=== PATIENT | male | born 1975 | race African-American/Black ===

== ENCOUNTER 2016-08-01 19:29 | Emergency (ER) | payer BC, MEDICAID ==
[2016-08-01 19:39] VITALS: RESP 18
[2016-08-01] MEDS ORDERED: SODIUM CHLORIDE 0.9% 1,000 ML IV ONE (20:11)
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
[2016-08-01] MEDS ORDERED: LORazepam 2 MG/ML SYRINGE IM STA (21:48)
[2016-08-01] MEDS ORDERED: ZIPRASIDONE 20 MG VIAL IM STA (21:48)
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
[2016-08-02 10:34] VITALS: BP 129/82; PULSE 91; TEMP 98
== END 2016-08-02 10:34 | disposition home or self-care (01) ==
LOC: EC 19:29
DX: F10.129 Alcohol abuse with intoxication, unspecified (principal); R45.850 Homicidal ideations; F43.10 Post-traumatic stress disorder, unspecified; F20.9 Schizophrenia, unspecified; F32.9 Major depressive disorder, single episode, unspecified; F17.200 Nicotine dependence, unspecified, uncomplicated; Z79.899 Other long term (current) drug therapy; Z88.5 Allergy status to narcotic agent; Y08.89XA Assault by other specified means, initial encounter
CPT/HCPCS: 82075; 72125; 70450; 99285; 96360; 96372 ×2; J2060; J3486

== ENCOUNTER 2017-02-04 11:56 | Emergency (ER) | payer BC, OTHER ==
[2017-02-04 12:07] VITALS: BP 159/88; PULSE 108; RESP 18; TEMP 98.3
[2017-02-04] MEDS ORDERED: ORPHENADRINE 30 MG/ML 2 ML VIAL IM STA (12:28)
[2017-02-04] MEDS ORDERED: KETOROLAC 30 MG/ML 1 ML VIAL IM STA (12:28)
[2017-02-04] MEDS ORDERED: ACET/COD 300 MG/30 MG STARTER PACK 6 TAB BTL PO STA (12:30)
[2017-02-04] MEDS ORDERED: CYCLOBENZAPRINE 10MG STARTER 3 TAB BTL PO STA (12:30)
[2017-02-04] MEDS ORDERED: IBUPROFEN 600 MG STARTER PACK 4 TAB BTL PO STA (12:30)
--- NOTE | 2017-02-04 12:30 | ED ---
Back Pain HPI - General Chief Complaint: Back Pain/Injury Stated Complaint: back and leg pain Time Seen by Provider: 02/04/17 12:13 Source: patient Limitations: no limitations - History of Present Illness Initial Comments: 41-year-old male patient presented to the emergency department today for evaluation of lower back pain. Patient states approximately one week ago he was helping a friend lift a dresser when he slipped on a wet floor and twisted his back. He states that he has been having low back pain near the sacral area that radiates down the left leg since then. He states that it is uncomfortable to sit, stand, or lie down. He states is very difficult to find a comfortable position. He denies any numbness or tingling to the lower extremities. He denies any loss of bowel or bladder control. Denies any saddle anesthesia. As he has had low back pain in the past and this is similar to his previous symptoms. He denies any use of medications at this time. Patient denies any recent rash, fever, chills, shortness breath, chest pain, abdominal pain, nausea , vomiting, diarrhea, constipation, dizziness, weakness, hematuria, dysuria, urinary urgency, urinary frequency, headache, visual changes, or any other complaints. - Related Data Home Medications Medication Instructions Recorded Confirmed Atomoxetine HCl [Strattera] 80 mg PO QAM 08/01/16 08/01/16 Previous Rx's Medication Instructions Recorded Acetaminophen-Codeine 300-30mg 1 tab PO Q6H PRN #15 tablet 02/04/17 [Tylenol #3] Cyclobenzaprine [Flexeril] 10 mg PO TID #15 tab 02/04/17 Ibuprofen [Motrin] 600 mg PO Q8HR PRN #30 tab 02/04/17 Allergies Allergy/AdvReac Type Severity Reaction Status Date / Time No Known Allergies Allergy Verified 02/04/17 12:07 Review of Systems ROS Statement: Those systems with pertinent positive or pertinent negative responses have been documented in the HPI. ROS Other: All systems not noted in ROS Statement are negative. Past Medical History Past Medical History: No Reported History History of Any Multi-Drug Resistant Organisms: None Reported Past Surgical History: No Surgical Hx Reported Past Psychological History: Depression, PTSD, Schizophrenia Smoking Status: Current every day smoker Past Alcohol Use History: Daily, Heavy Past Drug Use History: None Reported - Past Family History Father History Unknown: Yes Mother History Unknown: Yes General Exam Limitations: no limitations General appearance: alert, in no apparent distress, other (this is a well- developed, well-nourished, adult male patient in no acute distress. Vital signs upon presentation were temperature 98.3F, pulse 108, respirations 18, blood pressure 159/88, pulse ox 97% on room air.) Eye exam: Present: normal appearance, PERRL, EOMI. Absent: scleral icterus, conjunctival injection, periorbital swelling Neck exam: Present: normal inspection. Absent: tenderness, meningismus, lymphadenopathy Respiratory exam: Present: normal lung sounds bilaterally. Absent: respiratory distress, wheezes, rales, rhonchi, stridor Cardiovascular Exam: Present: regular rate, normal rhythm, normal heart sounds. Absent: systolic murmur, diastolic murmur, rubs, gallop, clicks GI/Abdominal exam: Present: soft, normal bowel sounds. Absent: distended, tenderness, guarding, rebound, rigid Extremities exam: Present: normal inspection, full ROM, normal capillary refill , other (posttibial pulses 2+ and equal bilaterally. Skin to the lower extremities is appropriate for ethnicity, warm, and dry. Cap refills less than 3 seconds.). Absent: tenderness, pedal edema, joint swelling, calf tenderness Back exam: Present: normal inspection, other (positive straight leg test left leg.). Absent: tenderness, rash noted Neurological exam: Present: alert, oriented X3, CN II-XII intact Psychiatric exam: Present: normal affect, normal mood Skin exam: Present: warm, dry, intact, normal color. Absent: rash Course Vital Signs 02/04/17 12:03 Temperature 98.3 F Pulse Rate 108 H Respiratory 18 Rate Blood Pressure 159/88 O2 Sat by Pulse 97 Oximetry Medical Decision Making - Medical Decision Making 41-year-old male patient presented for evaluation of acute low back pain. Physical examination did reveal a positive straight leg test on the left side. Patient was neurologically intact. Neurovascular status to the lower extremities is intact. Patient is able to ambulate without difficulty. We will give patient injections of Toradol and Norflex here in the department. He will be given prescriptions for pain medication as well as muscle relaxers. Patient is instructed to follow-up with orthopedics if his symptoms do not improve over the next 1-2 days. He is instructed to return here immediately for any new, worsening, or concerning symptoms. He verbalizes understanding and agrees with this plan. Disposition Clinical Impression: Acute low back pain Disposition: HOME SELF-CARE Condition: Good Instructions: Acute Low Back Pain (ED), Lower Back Exercises (ED) Additional Instructions: Take medications as directed. Apply warm moist heat to perform gentle range of motion exercises. Follow up with orthopedics for recheck in 1-2 days. Return here immediately for any new, worsening, or concerning symptoms. Prescriptions: Acetaminophen-Codeine 300-30mg [Tylenol #3] 1 tab PO Q6H PRN #15 tablet PRN Reason: Pain Cyclobenzaprine [Flexeril] 10 mg PO TID #15 tab Ibuprofen [Motrin] 600 mg PO Q8HR PRN #30 tab PRN Reason: Pain Referrals: None,Stated [Primary Care Provider] - 1-2 days Time of Disposition: 12:30
== END 2017-02-04 12:48 | disposition home or self-care (01) ==
LOC: EC 11:56
DX: M54.5 Low back pain (principal); M79.605 Pain in left leg; F17.200 Nicotine dependence, unspecified, uncomplicated; Z79.899 Other long term (current) drug therapy
CPT/HCPCS: 99283; 96372 ×2; J2360; J1885

== ENCOUNTER 2023-10-08 08:22 | Day surgery (SDC) | payer OTHER ==
[2023-10-04 11:35] VITALS: BMI 24.4
[2023-10-08 09:36] VITALS: TEMP 97.5
[2023-10-08] MEDS: LACTATED RINGERS 1,000 ML IV SCH (09:39)
[2023-10-08] MEDS: LIDOCAINE 1% (10MG/ML) FOR IV START INTRADERMA PRN (09:40)
[2023-10-08] MEDS: IV FLUID CONTINUATION 1,000 ML IV ONE ×2 (09:40→10:22)
[2023-10-08 09:51] LABS: Glucose,Whole Blood 84 mg/dL (70-110)
[2023-10-08] MEDS ORDERED: PROPOFOL 10 MG/ML 20 ML VIAL IV ONE (10:24)
[2023-10-08] MEDS ORDERED: LIDOCAINE 1% INJ 10MG/ML (20 ML MDV) ONE (10:24)
--- NOTE | 2023-10-08 10:36 | P.GSHP ---
History of Present Illness H&P Date: 10/08/23 Chief Complaint: Screening colonoscopy Is a 48-year-old male presents today for screening colonoscopy. Past Medical History Past Medical History: Diabetes Mellitus, GERD/Reflux, Hypertension, Sleep Apnea/CPAP/BIPAP Additional Past Medical History / Comment(s): cpap History of Any Multi-Drug Resistant Organisms: None Reported Past Surgical History: No Surgical Hx Reported Past Anesthesia/Blood Transfusion Reactions: No Reported Reaction Additional Past Anesthesia/Blood Transfusion Reaction / Comment(s): no blood transfusion Smoking Status: Current every day smoker - Past Family History Father History Unknown: Yes Mother History Unknown: Yes Medications and Allergies Home Medications Medication Instructions Recorded Confirmed Type Ibuprofen [Motrin] 600 mg PO Q8HR PRN #30 tab 02/04/17 10/04/23 Rx Omeprazole 20 mg PO DAILY 10/04/23 10/04/23 History Sertraline [Zoloft] 100 mg PO DAILY 10/04/23 10/04/23 History metFORMIN HCL 500 mg PO DAILY 10/04/23 10/04/23 History amLODIPine [Norvasc] 5 mg PO DAILY 10/08/23 10/08/23 History Allergies Allergy/AdvReac Type Severity Reaction Status Date / Time No Known Allergies Allergy Verified 02/04/17 12:07 Surgical - Exam Vital Signs Temp Pulse Resp BP Pulse Ox 97.5 F L 53 L 16 123/79 100 10/08/23 09:33 10/08/23 09:33 10/08/23 09:33 10/08/23 09:33 10/08/23 09:33 Assessment and Plan Assessment: Patient will be scheduled for screening colonoscopy Plan: 0
--- NOTE | 2023-10-08 10:37 | P.OP ---
Date of Procedure: 10/08/23 Preoperative Diagnosis: Screening colonoscopy Postoperative Diagnosis: Hemorrhoids Procedure(s) Performed: Colonoscopy Anesthesia: MAC Surgeon: Macho Melvin Pathology: none sent Condition: stable Disposition: PACU Description of Procedure: Patient was placed on the endoscopy table in the lateral position. He received IV sedation. Digital rectal exam was performed. This revealed a few external hemorrhoids. The flexible colonoscope was then placed patient anus and passed throughout the entire colon. The ileocecal valve was visualized. The cecum, ascending and transverse colon appeared normal. The descending and sigmoid colon appeared normal. Scope was brought back to the rectum and this appeared normal. Scope withdrawn for the patient.
[2023-10-08 10:56] VITALS: BP 100/64; PULSE 64; RESP 16
== END 2023-10-08 11:09 | disposition home or self-care (01) ==
LOC: ORWHC2ENDO 08:22
PROVIDERS: ATTEND Surgery
DX: Z12.11 Encounter for screening for malignant neoplasm of colon (principal); K64.4 Residual hemorrhoidal skin tags; E11.9 Type 2 diabetes mellitus without complications; G47.33 Obstructive sleep apnea (adult) (pediatric); I10 Essential (primary) hypertension; F32.A Depression, unspecified; K21.9 Gastro-esophageal reflux disease without esophagitis; F17.210 Nicotine dependence, cigarettes, uncomplicated; Z79.84 Long term (current) use of oral hypoglycemic drugs; Z79.899 Other long term (current) drug therapy
CPT/HCPCS: 45378; J2001; J2704

== ENCOUNTER → 2024-07-30 | Outpatient (CLI) | payer OTHER ==
[2024-07-30 14:44] LABS: African American GFR (CKD) >90 (>60 ml/min/1.73 sqM); Blood Urea Nitrogen 7 mg/dL (9-20); Non-African American GFR(CKD) >90 (>60 ml/min/1.73 sqM)
--- NOTE | 2024-07-30 16:39 | CT ---
EXAMINATION TYPE: CT abdomen pelvis w con DATE OF EXAM: 07/30/2024 3:47 PM COMPARISON: None CLINICAL INDICATION: Male, 49 years old with history of R10.31 RIGHT LOWER QUADRANT PAIN; inguinal hernia TECHNIQUE: Axial CT abdomen pelvis w con;Sagittal and coronal reformats were created on a separate w orkstation. Contrast used:100 cc mL of Isovue 300 with IV Contrast, (none if empty) Oral contrast used: with Oral Contrast (none if empty) CT DLP: 452.7 mGycm, Automated exposure control for dose reduction was used. FINDINGS: LOWER CHEST: Unremarkable ABDOMEN LIVER: Unremarkable GALLBLADDER AND BILE DUCTS: Unremarkable. PANCREAS: Unremarkable. SPLEEN: Unremarkable. ADRENAL GLANDS: Unremarkable. KIDNEYS AND URETERS: No evidence of hydronephrosis or obstructing renal calculus. The ureters are unr emarkable. PELVIS BLADDER: No evidence for wall thickening or mass given limitations of exam. REPRODUCTIVE: Unremarkable. ABDOMEN & PELVIS STOMACH AND BOWEL: No evidence of bowel obstruction. Appendix is normal. PERITONEUM/RETROPERITONEUM: No evidence of pneumoperitoneum or free fluid. VASCULATURE: No evidence of aortic aneurysm. MUSCULOSKELETAL: No acute osseous abnormalities, moderate to severe degeneration at L4-L5 adjoining e ndplates of complete loss of disc height. Moderate spinal stenosis L4-L5 secondary to posterior osteo phytes. LYMPH NODES: No gross evidence for lymphadenopathy. SOFT TISSUE/ABDOMINAL WALL: No inguinal hernias definitively visualized IMPRESSION: 1. No significant interval hernia visualized. Small umbilical hernia. No other hernia is visualized. No evidence for obstructive uropathy. The appendix is normal. 2. No evidence for acute process. [facility], , 07/30/2024 4:37 PM
== END | disposition home or self-care (01) ==
LOC: RADCTMAIN 14:02
PROVIDERS: ATTEND Family Medicine
DX: K42.9 Umbilical hernia without obstruction or gangrene (principal)
CPT/HCPCS: 82565; 84520; 74177; 36415; Q9967

== ENCOUNTER → 2024-09-13 | Outpatient (CLI) | payer OTHER ==
[2024-09-13 14:16] LABS: HCT 42.4 % (39.6-50.0); HGB 13.9 g/dL (13.0-17.0); MCHC 32.8 g/dL (32.0-37.0); MCV 91.4 FL (80.0-97.0); Mean Platelet Volume 9.3 FL (9.5-12.2); NRBC Per 100 WBC 0 X 10*3/uL (0.00-0.01); Platelet Count 277 X 10*3/uL (140-440); RBC 4.64 X 10*6/uL (4.40-5.60); RDW 14.4 % (11.5-14.5); WBC 4.72 X 10*3/uL (4.50-10.00)
== END | disposition home or self-care (01) ==
LOC: LABWHC1 07:20
PROVIDERS: ATTEND Surgery
DX: Z01.812 Encounter for preprocedural laboratory examination (principal); K42.9 Umbilical hernia without obstruction or gangrene; K40.90 Unilateral inguinal hernia, without obstruction or gangrene, not specified as recurrent
CPT/HCPCS: 36415; 85027; 86850; 86870; 86900; 86901

== ENCOUNTER 2024-09-23 05:43 | Day surgery (SDC) | payer OTHER ==
[2024-09-18 16:14] VITALS: BMI 23.0
[2024-09-23 06:28] VITALS: TEMP 98
[2024-09-23 06:36] LABS: Glucose,Whole Blood 117 mg/dL (70-110)
[2024-09-23] MEDS: LACTATED RINGERS 1,000 ML BAG IV STA (06:37)
[2024-09-23] MEDS: IV FLUID CONTINUATION 1,000 ML IV ONE ×2 (06:37→09:50)
[2024-09-23] MEDS: ACETAMINOPHEN TAB 500 MG TAB PO PRN (06:44)
[2024-09-23] MEDS: ONDANSETRON 4 MG/2 ML VIAL IVP STA (06:45)
[2024-09-23] MEDS: HEPARIN SODIUM,PORCINE 5,000 UNIT/ML 1 ML VIAL SQ PRN (06:46)
[2024-09-23] MEDS: DEXAMETHASONE SOD PHOSPHATE 4 MG/ML 1 ML VIAL IVP STA (06:46)
[2024-09-23] MEDS: LIDOCAINE 1%-EPI 1:100,000 20 ML VIAL SQ ONE ×3 (07:23→07:57)
[2024-09-23] MEDS ORDERED: ROCURONIUM 10 MG/ML (5 ML VIAL) IV ONE (07:36)
[2024-09-23] MEDS ORDERED: LIDOCAINE 4% LTA KIT (4 ML) TOPICAL ONE (07:36)
[2024-09-23] MEDS ORDERED: fentaNYL (PF) 50 MCG/ML 2 ML AMP ONE (07:36)
[2024-09-23] MEDS ORDERED: SUCCINYLCHOLINE CHLORIDE 200 MG/10 ML VIAL IV ONE (07:36)
[2024-09-23] MEDS ORDERED: PROPOFOL 10 MG/ML 20 ML VIAL IV ONE (07:36)
[2024-09-23] MEDS ORDERED: LIDOCAINE 1% INJ 10MG/ML (20 ML MDV) ONE (07:36)
[2024-09-23] MEDS ORDERED: KETAMINE HCL IN 0.9 % NACL 50 MG/5 ML SYRINGE ONE (07:36)
[2024-09-23] MEDS ORDERED: KETOROLAC 15 MG/ML 1 ML VIAL ONE (07:36)
[2024-09-23] MEDS ORDERED: GLYCOPYRROLATE 0.2 MG/ML 2 ML VIAL ONE (07:36)
[2024-09-23] MEDS ORDERED: NEOSTIGMINE 1 MG/ML 10 ML VIAL ONE (07:36)
[2024-09-23] MEDS ORDERED: MIDAZOLAM 2 MG/2 ML VIAL ONE (07:36)
--- NOTE | 2024-09-23 07:36 | P.GSHP ---
History of Present Illness H&P Date: 09/23/24 Chief Complaint: Right inguinal hernia, umbilical hernia This a 49-year-old male who has complaints of inguinal pain and mass. Patient states he feels a mass in his right groin when he coughs and sneezes or lifts heavy objects. Patient a recent CAT scan which also shows an umbilical hernia. Past Medical History Past Medical History: Diabetes Mellitus, GERD/Reflux, Hypertension, Prostate Disorder, Sleep Apnea/CPAP/BIPAP Additional Past Medical History / Comment(s): NO LONGER USING C-PAP History of Any Multi-Drug Resistant Organisms: None Reported Past Surgical History: Back Surgery Additional Past Surgical History / Comment(s): COLONOSCOPY. LOWER BACK Past Anesthesia/Blood Transfusion Reactions: No Reported Reaction Additional Past Anesthesia/Blood Transfusion Reaction / Comment(s): no blood transfusion Smoking Status: Current every day smoker - Past Family History Father History Unknown: Yes Family Medical History: No Reported History Mother History Unknown: Yes Family Medical History: No Reported History Medications and Allergies Home Medications Medication Instructions Recorded Confirmed Type Ibuprofen [Motrin] 600 mg PO Q8HR PRN #30 tab 02/04/17 09/23/24 Rx Omeprazole 20 mg PO DAILY 10/04/23 09/23/24 History Sertraline [Zoloft] 100 mg PO DAILY 10/04/23 09/23/24 History metFORMIN HCL 500 mg PO DAILY 10/04/23 09/23/24 History amLODIPine [Norvasc] 5 mg PO DAILY 10/08/23 09/23/24 History Multivitamin [Multivitamins Adult 1 dose PO DAILY 09/23/24 09/23/24 History Gummies] Allergies Allergy/AdvReac Type Severity Reaction Status Date / Time No Known Allergies Allergy Verified 09/23/24 06:15 Surgical - Exam Vital Signs Temp Pulse Resp BP Pulse Ox 98.0 F 60 12 102/76 98 09/23/24 06:19 09/23/24 06:19 09/23/24 06:19 09/23/24 06:19 09/23/24 06:19 - General well developed, well nourished, no distress - Eyes PERRL - ENT normal pinna - Neck no masses - Respiratory normal expansion - Cardiovascular Rhythm: regular - Abdomen Abdomen: soft, non tender Hernia: inguinal (Small right inguinal l hernia), umbilical Results - Labs Abnormal Lab Results - Last 24 Hours (Table) 09/23/24 Range/Units 06:34 POC Glucose (mg/dL) 117 H (70-110) mg/dL Assessment and Plan Assessment: Right inguinal hernia, umbilical hernia. Will perform laparoscopic robotic assisted repair.
[2024-09-23] MEDS: HYDROmorphone 0.5 MG/0.5 ML SYRINGE IVP PRN (08:44)
--- NOTE | 2024-09-23 08:54 | P.OP ---
Date of Procedure: 09/23/24 Preoperative Diagnosis: Right inguinal hernia Umbilical hernia Postoperative Diagnosis: Same Procedure(s) Performed: Laparoscopic robotic assisted repair of right inguinal hernia Laparoscopic pair of umbilical hernia Four-quadrant transversus abdominis plane block Anesthesia: CORY Surgeon: Macho Melvin Estimated Blood Loss (ml): 5 Pathology: none sent Condition: stable Disposition: PACU Description of Procedure: The patient's placed on the operating table in the supine position. The patient received general anesthesia. The patient's abdomen was prepped and draped in usual sterile fashion. The skin was anesthetized 1% local Xylocaine at the incision sites. Using an 11 blade a skin incision was made at the umbilicus. The fascia was grasped with a Flor and then the peritoneal cavity was entered with the Veress needle. Position of the Veress needle was confirmed with a positive drop test. After adequate insufflation a 5 mm trocar was placed into the peritoneal cavity. The Laparoscope was placed the peritoneal cavity. And a robotic 8 mm trocar was placed in the right lateral position and then another 8 mm robotic trochars placed in the left lateral position. The original 5 mm trocar was exchanged for a 8 mm trocar. A four quadrant transversus abdominal bloc was performed with 1% local xylocaine. The patient was placed in reverse Trendelenburg and then the patient was docked to the robot. Next the peritoneum over top of the hernia was incised and then using blunt and sharp dissection and electrocautery the hernia sac was dissected free from the floor of the inguinal canal. The hernia sac was completely reduced into the peritoneal cavity. And then using the Pro senior accountant mesh the hernia was repaired. The peritoneum was then sutured with 20V lock suture. The patient was then undocked the robot. The needle was withdrawn from the peritoneal cavity. The umbilical hernia site was closed with 0 Ethibond suture. This was performed laparoscopically using the Dk Sher suture passer. The skin was closed interrupted 3-0 Monocryl suture. Dermabond dressing was applied. Patient was sent to recovery in stable condition.
[2024-09-23] MEDS: LACTATED RINGERS 1,000 ML IV SCH (09:25)
[2024-09-23 09:43] VITALS: RESP 16
[2024-09-23 10:39] VITALS: BP 135/78; PULSE 62
== END 2024-09-23 10:49 | disposition home or self-care (01) ==
LOC: OR 05:43
PROVIDERS: ATTEND Surgery
DX: K40.90 Unilateral inguinal hernia, without obstruction or gangrene, not specified as recurrent (principal); K42.9 Umbilical hernia without obstruction or gangrene; E11.9 Type 2 diabetes mellitus without complications; I10 Essential (primary) hypertension; G47.33 Obstructive sleep apnea (adult) (pediatric); F32.A Depression, unspecified; K21.9 Gastro-esophageal reflux disease without esophagitis; F17.210 Nicotine dependence, cigarettes, uncomplicated; Z79.84 Long term (current) use of oral hypoglycemic drugs; Z99.89 Dependence on other enabling machines and devices; Z79.899 Other long term (current) drug therapy
CPT/HCPCS: 49591; 49650; S2900

== ENCOUNTER 2024-09-24 14:41 | Emergency (ER) | payer OTHER ==
[2024-09-24 14:49] VITALS: BP 103/70; PULSE 60; RESP 22; TEMP 97.9
--- NOTE | 2024-09-24 15:21 | ED ---
Dizziness HPI - General Chief Complaint: Syncope Stated Complaint: Syncope Time Seen by Provider: 09/24/24 15:13 Source: patient, RN notes reviewed Mode of arrival: ambulatory Limitations: no limitations - History of Present Illness Initial Comments: 49-year-old male presenting for episode of syncope 30 minutes prior to arrival. States he was walking around his house when he began to feel lightheaded and nauseous. States he went to the bathroom as he thought he was going to vomit when he had an episode of syncope. States he believes he did hit the back of his head on the counter however no other injuries from the fall. He underwent laparoscopic hernia repair with Dr. Melvin yesterday. He does endorse a "fullness" sensation in the epigastric region of his abdomen however denies chest pain, shortness of breath, fevers, urinary symptoms. Denies any other significant medical conditions. - Related Data Home Medications Medication Instructions Recorded Confirmed Omeprazole 20 mg PO DAILY 10/04/23 09/23/24 Sertraline [Zoloft] 100 mg PO DAILY 10/04/23 09/23/24 metFORMIN HCL 500 mg PO DAILY 10/04/23 09/23/24 amLODIPine [Norvasc] 5 mg PO DAILY 10/08/23 09/23/24 Multivitamin [Multivitamins Adult 1 dose PO DAILY 09/23/24 09/23/24 Gummies] Previous Rx's Medication Instructions Recorded Ibuprofen [Motrin] 600 mg PO Q8HR PRN #30 tab 02/04/17 Acetaminophen Tab [Tylenol] 650 mg PO Q6H #30 tab 09/23/24 Docusate [Colace] 100 mg PO BID #20 capsule 09/23/24 Ibuprofen [Motrin] 600 mg PO Q6HR PRN #40 tab 09/23/24 oxyCODONE HCL [OxyIR] 5 mg PO Q6H PRN 3 Days #10 tab 09/23/24 Allergies Allergy/AdvReac Type Severity Reaction Status Date / Time No Known Allergies Allergy Verified 09/24/24 14:49 Review of Systems ROS Statement: Those systems with pertinent positive or pertinent negative responses have been documented in the HPI. ROS Other: All systems not noted in ROS Statement are negative. Past Medical History Past Medical History: Diabetes Mellitus, GERD/Reflux, Hypertension, Sleep Apnea/CPAP/BIPAP Additional Past Medical History / Comment(s): cpap History of Any Multi-Drug Resistant Organisms: None Reported Past Surgical History: No Surgical Hx Reported Additional Past Surgical History / Comment(s): hernia surgery 09/23/24 Past Anesthesia/Blood Transfusion Reactions: No Reported Reaction Additional Past Anesthesia/Blood Transfusion Reaction / Comment(s): no blood transfusion Past Psychological History: Depression Smoking Status: Current every day smoker - Past Family History Father History Unknown: Yes Mother History Unknown: Yes General Exam Limitations: no limitations General appearance: alert, in no apparent distress Head exam: Present: atraumatic, normocephalic, normal inspection GI/Abdominal exam: Present: soft, normal bowel sounds, other (3 laparoscopic surgical incisions are clean dry and intact, no surrounding erythema or sign of bacterial infection). Absent: distended, tenderness, guarding, rebound, rigid Back exam: Absent: CVA tenderness (R), CVA tenderness (L) Neurological exam: Present: alert, oriented X3 Psychiatric exam: Present: normal affect, normal mood Skin exam: Present: warm, dry, intact, normal color. Absent: rash Course Vital Signs 09/24/24 14:42 Temperature 97.9 F Pulse Rate 60 Respiratory 22 Rate Blood Pressure 103/70 O2 Sat by Pulse 99 Oximetry EKG Findings - EKG Results: EKG: interpreted by ERMD (EKG reveals sinus bradycardia with no acute ST changes. Ventricular rate 57 bpm, AL interval 112, QRS duration 88, QT/QTc 409/402) Medical Decision Making - Medical Decision Making Was pt. sent in by a medical professional or institution (, PA, HAND QUILTER, urgent c are, hospital, or skilled nursing...) When possible be specific @ -No Did you speak to anyone other than the patient for history (EMS, parent, family, police, friend...)? What history was obtained from this source @ -No Did you review nursing and triage notes (agree or disagree)? Why? @ -I reviewed and agree with nursing and triage notes Were old charts reviewed (outside hosp., previous admission, EMS record, old EKG, old radiological studies, urgent care reports/EKG's, skilled nursing records)? Report findings @ -No old charts were reviewed Differential Diagnosis (chest pain, altered mental status, abdominal pain women, abdominal pain men, vaginal bleeding, weakness, fever, dyspnea, syncope, h eadache, dizziness, GI bleed, back pain, seizure, CVA, palpatations, mental health, musculoskeletal)? @ -Differential Syncope: Valvular disease, hypertrophic cardiomyopathy, pulmonary embolism, tamponade, tachycardia, bradycardia, ID, hypovolemia, hemorrhage, dissection, anemia, intracranial hemorrhage, seizure, hypoglycemia, carbon monoxide poisoning, this is not meant to be an all-inclusive list. EKG interpreted by me (3pts min.). @ -As above X-rays interpreted by me (1pt min.). @ -chest x-ray and KUB reveals free air under the diaphragm CT interpreted by me (1pt min.). @ -None done U/S interpreted by me (1pt. min.). @ -None done What testing was considered but not performed or refused? (CT, X-rays, U/S, labs)? Why? @ -None What meds were considered but not given or refused? Why? @ -None Did you discuss the management of the patient with other professionals (professionals i.e. , PA, HAND QUILTER, lab, RT, psych nurse, social director, animation producer, teacher, space operations officer, human services case manager)? Give summary @ -No Was smoking cessation discussed for >3mins.? @ -No Was critical care preformed (if so, how long)? @ -No Were there social determinants of health that impacted care today? How? (Homelessness, low income, unemployed, alcoholism, drug addiction, transportation, low edu. Level, literacy, decrease access to med. care, long term, rehab)? @ -No Was there de-escalation of care discussed even if they declined (Discuss DNR or withdrawal of care, Hospice)? DNR status @ -No What co-morbidities impacted this encounter? (DM, HTN, Smoking, COPD, CAD, Cancer, CVA, ARF, Chemo, Hep., AIDS, mental health diagnosis, sleep apnea, morbid obesity)? @ -None Was patient admitted / discharged? Hospital course, mention meds given and route, prescriptions, significant lab abnormalities, going to OR and other pe rtinent info. @ -Patient left AGAINST MEDICAL ADVICE. 49-year-old male presenting with episode of syncope 30 minutes prior to arrival. Patient had laparoscopic hernia repair with Dr. Melvin yesterday. Abdomen soft and nontender. Incisions clean dry and intact, no sign of bacterial infection. Lab work including CBC, CMP, D-dimer, troponin unremarkable. Chest x-ray and KUB reveals free air under the diaphragm. Patient left AGAINST MEDICAL ADVICE before results were discussed or disposition was decided. Case was discussed with my ED attending Dr. Busch. Undiagnosed new problem with uncertain prognosis? @ -No Drug Therapy requiring intensive monitoring for toxicity (Heparin, Nitro, Ins ulin, Cardizem)? @ -No Were any procedures done? @ -No Diagnosis/symptom? @ -Syncope Acute, or Chronic, or Acute on Chronic? @ -Acute Uncomplicated (without systemic symptoms) or Complicated (systemic symptoms)? @ -Complicated Side effects of treatment? @ -No Exacerbation, Progression, or Severe Exacerbation? @ -No Poses a threat to life or bodily function? How? (Chest pain, USA, ID, pneumonia, PE, COPD, DKA, ARF, appy, cholecystitis, CVA, Diverticulitis, Homicidal, Suicidal, threat to staff... and all critical care pts) @ -Undetermined at this time - Lab Data Result diagrams: 09/24/24 15:22 09/24/24 15:22 Lab Results 09/24/24 09/24/24 09/24/24 Range/Units 15:22 15:22 15:22 WBC 8.25 (4.50-10.00) 10*3/uL RBC 3.72 L (4.40-5.60) 10*6/uL Hgb 11.2 L (13.0-17.0) g/dL Hct 33.6 L (39.6-50.0) % MCV 90.3 (80.0-97.0) fL MCH 30.1 (27.0-32.0) pg MCHC 33.3 (32.0-37.0) g/dL Plt Count 211 (140-440) 10*3/uL MPV 9.7 (9.5-12.2) fL Immature Gran % (Auto) 0.2 % Neutrophils % 63.7 % Lymphocytes % 27.4 % Monocytes % 7.9 % Eosinophils % 0.6 % Basophils % 0.2 % Immature Gran # 0.02 (0.00-0.04) 10*3/uL Neutrophils # 5.25 (1.80-7.70) 10*3/uL Lymphocytes # 2.26 (0.90-5.00) 10*3/uL Monocytes # 0.65 (0.20-1.00) 10*3/uL Eosinophils # 0.05 (0.04-0.35) 10*3/uL Basophils # 0.02 (0.00-0.10) 10*3/uL PT 10.7 (10.0-12.5) sec INR 1.0 (<1.2) APTT 23.1 (22.0-30.0) sec D-Dimer 0.32 (<0.60) mg/L FEU Sodium 138 (137-145) mmol/L Potassium 4.6 (3.5-5.1) mmol/L Chloride 107 (98-107) mmol/L Carbon Dioxide 23 (22-30) mmol/L Anion Gap 8 mmol/L BUN 7 L (9-20) mg/dL Creatinine 0.72 (0.66-1.25) mg/dL Est GFR (CKD-EPI)AfAm >90 (>60 ml/min/1.73 sqM) Est GFR (CKD-EPI)NonAf >90 (>60 ml/min/1.73 sqM) Glucose 125 H (74-99) mg/dL Calcium 8.4 (8.4-10.2) mg/dL Total Bilirubin 1.1 (0.2-1.3) mg/dL AST 37 (17-59) U/L ALT 14 (4-49) U/L Alkaline Phosphatase 48 (38-126) U/L Troponin I (0.000-0.034) ng/mL Total Protein 6.5 (6.3-8.2) g/dL Albumin 4.1 (3.5-5.0) g/dL 09/24/24 Range/Units 15:22 WBC (4.50-10.00) 10*3/uL RBC (4.40-5.60) 10*6/uL Hgb (13.0-17.0) g/dL Hct (39.6-50.0) % MCV (80.0-97.0) fL MCH (27.0-32.0) pg MCHC (32.0-37.0) g/dL Plt Count (140-440) 10*3/uL MPV (9.5-12.2) fL Immature Gran % (Auto) % Neutrophils % % Lymphocytes % % Monocytes % % Eosinophils % % Basophils % % Immature Gran # (0.00-0.04) 10*3/uL Neutrophils # (1.80-7.70) 10*3/uL Lymphocytes # (0.90-5.00) 10*3/uL Monocytes # (0.20-1.00) 10*3/uL Eosinophils # (0.04-0.35) 10*3/uL Basophils # (0.00-0.10) 10*3/uL PT (10.0-12.5) sec INR (<1.2) APTT (22.0-30.0) sec D-Dimer (<0.60) mg/L FEU Sodium (137-145) mmol/L Potassium (3.5-5.1) mmol/L Chloride (98-107) mmol/L Carbon Dioxide (22-30) mmol/L Anion Gap mmol/L BUN (9-20) mg/dL Creatinine (0.66-1.25) mg/dL Est GFR (CKD-EPI)AfAm (>60 ml/min/1.73 sqM) Est GFR (CKD-EPI)NonAf (>60 ml/min/1.73 sqM) Glucose (74-99) mg/dL Calcium (8.4-10.2) mg/dL Total Bilirubin (0.2-1.3) mg/dL AST (17-59) U/L ALT (4-49) U/L Alkaline Phosphatase (38-126) U/L Troponin I <0.012 (0.000-0.034) ng/mL Total Protein (6.3-8.2) g/dL Albumin (3.5-5.0) g/dL Disposition Clinical Impression: Syncope Disposition: LEFT AGAINST MEDICAL ADVICE Condition: Undetermined Referrals: Seng Cordova MD [Primary Care Provider] - 1-2 days Time of Disposition: 18:41
[2024-09-24] MEDS: SODIUM CHLORIDE 0.9% 1,000 ML IV STA (15:23)
[2024-09-24 15:34] LABS: Basophils # (A) 0.02 10*3/uL (0.00-0.10); Basophils % (A) 0.2 %; Eosinophils # (A) 0.05 10*3/uL (0.04-0.35); Eosinophils % (A) 0.6 %; HCT 33.6 % (39.6-50.0); HGB 11.2 g/dL (13.0-17.0); Lymphocytes # (A) 2.26 10*3/uL (0.90-5.00); Lymphocytes % (A) 27.4 %; MCH 30.1 pg (27.0-32.0); MCHC 33.3 g/dL (32.0-37.0); MCV 90.3 fL (80.0-97.0); Monocytes # (A) 0.65 10*3/uL (0.20-1.00); Monocytes % (A) 7.9 %; Neutrophils # (A) 5.25 10*3/uL (1.80-7.70); Neutrophils % (A) 63.7 %; Platelet Count 211 10*3/uL (140-440); RBC 3.72 10*6/uL (4.40-5.60); RDW 14.5 % (11.5-14.5); WBC 8.25 10*3/uL (4.50-10.00)
[2024-09-24 15:43] LABS: ALT 14 U/L (4-49); African American GFR (CKD) >90 (>60 ml/min/1.73 sqM); Anion Gap 8 mmol/L; Blood Urea Nitrogen 7 mg/dL (9-20); Calcium 8.4 mg/dL (8.4-10.2); Carbon Dioxide 23 mmol/L (22-30); Chloride 107 mmol/L (98-107); Glucose 125 mg/dL (74-99); Non-African American GFR(CKD) >90 (>60 ml/min/1.73 sqM); Sodium 138 mmol/L (137-145)
[2024-09-24 15:54] LABS: AST 37 U/L (17-59); Albumin 4.1 g/dL (3.5-5.0); Alkaline Phosphatase 48 U/L (38-126); INR 1.0 (<1.2); Partial Thromboplastin Time 23.1 sec (22.0-30.0); Potassium 4.6 mmol/L (3.5-5.1); Prothrombin Time 10.7 sec (10.0-12.5); Total Protein 6.5 g/dL (6.3-8.2)
--- NOTE | 2024-09-24 16:06 | XR ---
EXAMINATION TYPE: XR KUB DATE OF EXAM: 09/24/2024 3:52 PM COMPARISON: None CLINICAL INDICATION: Male, 49 years old with history of syncope s/p hernia surgery; [facility] TECHNIQUE: One radiographic view of the abdomen was obtained. FINDINGS: There is free air under the diaphragm. The bowel gas pattern is nonspecific without dilated loops of small or large bowel. Fecal material and gas are demonstrated throughout the colon and rect um. There is no evidence for organomegaly. No acute osseous process. No abnormal calcifications are present. IMPRESSION: There is free air under the diaphragm. Given history of recent surgical intervention this could be no rmal for this patient. If not surgery not recently performed, a surgical consultation is recommended and additional imaging recommended. [facility], , 09/24/2024 4:04 PM
--- NOTE | 2024-09-24 16:07 | XR ---
EXAMINATION TYPE: XR chest 2V DATE OF EXAM: 09/24/2024 3:52 PM COMPARISON: Chest radiographs from 01/02/2020. CLINICAL INDICATION: Male, 49 years old with history of syncope s/p surgery; [facility] TECHNIQUE: XR chest 2V Frontal and lateral views of the chest. FINDINGS: Lungs/Pleura: Azygous fissure present. There is no evidence of pleural effusion, focal consolidation, or pneumothorax. Pulmonary vascularity: Unremarkable. Heart/mediastinum: Cardiomediastinal silhouette is unremarkable. Musculoskeletal: No acute osseous pathology. IMPRESSION: There is free air under the diaphragm recent surgical intervention [facility], , 09/24/2024 4:05 PM
== END 2024-09-24 16:40 | disposition left against medical advice (07) ==
LOC: EC 14:41
DX: R55 Syncope and collapse (principal); Z53.29 Procedure and treatment not carried out because of patient's decision for other reasons; F17.200 Nicotine dependence, unspecified, uncomplicated
CPT/HCPCS: 36415; 71046; 74018; 80053; 84484; 85025; 85379; 85610; 85730; 93005; 96360; 99285